=== PATIENT | male | born 1965 | race Two or more races ===

== ENCOUNTER 2018-09-07 09:39 | Inpatient (IN) | payer OTHER ==
[~2018-09-07] VITALS: Ht 172.7 cm; Wt 77.1 kg
[2018-09-07 10:30] LABS: BASOPHIL % 0.6 % (0-2); PLATELET COUNT 177 x10^3mcL (130-400)
[2018-09-07 10:37] LABS: CALCIUM 8.4 mg/dL (8.5-10.1); CARBON DIOXIDE 20.8 mmol/L (21-32); CHLORIDE SERUM 89 mmol/L (98-107); CREATININE SERUM 1.2 mg/dL (0.7-1.3); GFR1 > 60 mL/min; GLUCOSE SERUM 96 mg/dL (74-106); POTASSIUM SERUM 3.3 mmol/L (3.5-5.1); SODIUM SERUM 126 mmol/L (136-145)
[2018-09-07 10:42] LABS: ALBUMIN 4.3 g/dL (3.4-5.0); ALKALINE PHOSPHATASE 149 U/L (46-116); ALT/SGPT 22 U/L (16-63); AST/SGOT 58 U/L (15-37)
[2018-09-07 10:43] LABS: TOTAL PROTEIN, SERUM 8.4 g/dL (6.4-8.2)
[2018-09-07] MEDS ORDERED: PROGRAF1 MG (12:11)
[2018-09-07 12:39] LABS: MAGNESIUM 1.2 mg/dL (1.8-2.4); PHOSPHOROUS 2.8 mg/dL (2.5-4.9)
[2018-09-07 12:50] LABS: FREE T4 1.29 ng/dL (0.76-1.46); FREE THYROXINE INDEX 3.6 ug/dL (1.4-4.5); T3 TOTAL 1.51 ng/mL
[2018-09-07 13:02] VITALS: BP 127/83
[2018-09-07 13:14] LABS: microscopic required? YES; urine erythrocyte 1+ (NEGATIVE)
[2018-09-07 13:24] VITALS: BP 127/83
[2018-09-07 21:37] VITALS: BP 109/70
[2018-09-08 05:49] VITALS: BP 119/78
[2018-09-08 06:44] LABS: ALKALINE PHOSPHATASE 116 U/L (46-116); ALT/SGPT 18 U/L (16-63); AST/SGOT 36 U/L (15-37); BILIRUBIN DIRECT 0.36 mg/dL (0.0-0.2); BILIRUBIN TOTAL 1.11 mg/dL (0.20-1.00); CHLORIDE SERUM 105 mmol/L (98-107); CREATININE SERUM 0.9 mg/dL (0.7-1.3); GFR1 > 60 mL/min; GLUCOSE SERUM 84 mg/dL (74-106); POTASSIUM SERUM 4.7 mmol/L (3.5-5.1); SODIUM SERUM 135 mmol/L (136-145); TOTAL PROTEIN, SERUM 6.5 g/dL (6.4-8.2)
[2018-09-08 06:53] LABS: ALBUMIN 3.1 g/dL (3.4-5.0)
[2018-09-08 06:59] LABS: PLATELET COUNT 129 x10^3mcL (130-400); RED CELL DISTRIBUTION WIDTH 15.3 % (11.5-14.5)
[2018-09-08 09:44] VITALS: BP 112/79
[2018-09-08 13:40] LABS: BAND NEUTROPHIL 4 % (0-10); BASOPHIL 0 % (0-2); MONOCYTE 10 % (0-7); SEGMENTED NEUTROPHILS 54 % (37-75)
[2018-09-08 13:41] LABS: PLATELET MORPHOLOGY PLATELETS DECREASED; rbc morphology (normal/abnorm) ABNORMAL (NORMAL)
[2018-09-08 17:40] VITALS: BP 112/78
[2018-09-08 20:30] VITALS: BP 134/77
[2018-09-09 05:29] VITALS: BP 114/77
[2018-09-09 06:42] LABS: CALCIUM 8.6 mg/dL (8.5-10.1); CARBON DIOXIDE 21.2 mmol/L (21-32); CHLORIDE SERUM 103 mmol/L (98-107); GFR1 > 60 mL/min; GLUCOSE SERUM 79 mg/dL (74-106); POTASSIUM SERUM 4.6 mmol/L (3.5-5.1); SODIUM SERUM 135 mmol/L (136-145)
[2018-09-09 09:02] VITALS: BP 117/81
[2018-09-09 09:29] LABS: PLATELET COUNT 127 x10^3mcL (130-400); RED CELL DISTRIBUTION WIDTH 15.9 % (11.5-14.5)
[2018-09-09] MEDS ORDERED: KEFLEX500 M1 PO (11:38)
[2018-09-09 12:02] VITALS: BP 117/81
[2018-09-09 13:25] LABS: ATYPICAL LYMPH 2 %; BAND NEUTROPHIL 1 % (0-10); BASOPHIL 1 % (0-2); MONOCYTE 31 % (0-7); SEGMENTED NEUTROPHILS 32 % (37-75)
[2018-09-09 13:26] LABS: PLATELET MORPHOLOGY PLATELETS DECREASED; rbc morphology (normal/abnorm) ABNORMAL (NORMAL)
== END 2018-09-09 12:50 | disposition home or self-care (01) | DRG 720 ==
LOC: ED 09:39 → MU 12:00
PROVIDERS: Emergency Medicine; Internal Medicine
DX: A41.9 Sepsis, unspecified organism (principal); D61.818 Other pancytopenia; E87.2 Acidosis; Z94.4 Liver transplant status; K74.60 Unspecified cirrhosis of liver; A08.4 Viral intestinal infection, unspecified; F10.239 Alcohol dependence with withdrawal, unspecified; Y90.9 Presence of alcohol in blood, level not specified; E87.1 Hypo-osmolality and hyponatremia; K57.90 Diverticulosis of intestine, part unspecified, without perforation or abscess without bleeding; E87.6 Hypokalemia; E83.42 Hypomagnesemia; Z94.0 Kidney transplant status; F17.210 Nicotine dependence, cigarettes, uncomplicated; N39.0 Urinary tract infection, site not specified; F12.90 Cannabis use, unspecified, uncomplicated; I25.2 Old myocardial infarction; Z71.6 Tobacco abuse counseling; Z71.41 Alcohol abuse counseling and surveillance of alcoholic; Z79.899 Other long term (current) drug therapy
CPT/HCPCS: 82962; 84439; J0696; J1644; J2550; J3010; J3480; J7030; J7507; Q0092